=== PATIENT | female | born 1980 | race African-American/Black ===

== ENCOUNTER 2023-05-20 17:01 | Emergency (ER) | payer OTHER, SELFPAY ==
[2023-05-20 17:13] VITALS: BP 132/99; PULSE 68; RESP 17; TEMP 36.3; O2SAT 100
--- NOTE | 2023-05-20 19:54 | ED.GENADULT ---
HPI - General Adult General Chief complaint: Unspecified Stated complaint: nasal congestion/head fullness/sinus infection Time Seen by Provider: 05/20/23 19:27 History of Present Illness HPI narrative: Patient is a 43-year-old female presenting with sinusitis. Patient states that she has had months of nasal congestion and sinus fullness and starting to vape. States that she has stopped vaping but her symptoms have continued. States that she has been using nasal spray which is no longer helping. Reports nasal drainage mild cough but no fevers or chills, shortness of breath, chest pain. Denies further complaints. Related Data Allergies Allergy/AdvReac Type Severity Reaction Status Date / Time No Known Allergies Allergy Verified 05/20/23 19:18 Review of Systems Review of Systems: All systems reviewed & are unremarkable except as noted in HPI and below Exam Narrative: GENERAL: Well-appearing and in no acute distress. HEAD: Normocephalic, atraumatic. EYES: PERRLA and EOMI. ENT: +bilateral nasal congestion, mild frontal sinus tenderness NECK: Supple. CHEST: Clear to auscultation. No respiratory distress. HEART: Regular rate and rhythm ABDOMEN: Nondistended EXTREMITIES: Normal range of motion. SKIN: Warm, dry, no rash. NEURO: Alert and oriented x3. PSYCH: Normal mood and affect. Course Vital Signs Vital signs: Vital Signs Temperature 97.4 F L 05/20/23 17:13 Pulse Rate 68 05/20/23 17:13 Respiratory Rate 17 05/20/23 17:13 Blood Pressure 132/99 H 05/20/23 17:13 Pulse Oximetry 100 05/20/23 17:13 Oxygen Delivery Room Air 05/20/23 17:13 Temperature 97.4 F L 05/20/23 17:13 Pulse Rate 68 05/20/23 17:13 Respiratory Rate 17 05/20/23 17:13 Blood Pressure 132/99 H 05/20/23 17:13 Pulse Oximetry 100 05/20/23 17:13 Oxygen Delivery Room Air 05/20/23 17:13 Medical Decision Making [facility] Narrative Medical decision making narrative: Patient is a 43-year-old female presenting with sinusitis for several months. Vitals are stable. Exam remarkable for the above. Patient was able to show me the nasal spray that she has been using which contains oxymetazoline. Advised that she discontinue any nasal sprays that contain this and only use nasal sprays that have saline. She is agreeable with this plan. We will treat her with a course of antibiotics for possible chronic sinusitis. Advised ENT follow-up. Appropriate return precautions given. Patient voiced understanding and is agreeable with plan. Discharged in stable condition. Differential Diagnosis Differential Diagnosis: Sinusitis, URI, nasal congestion Medical Records Medical records reviewed: Yes I reviewed the external patient's medical records. Vital Signs Vital Signs: Vital Signs Temperature 97.4 F L 05/20/23 17:13 Pulse Rate 68 05/20/23 17:13 Respiratory Rate 17 05/20/23 17:13 Blood Pressure 132/99 H 05/20/23 17:13 Pulse Oximetry 100 05/20/23 17:13 Oxygen Delivery Room Air 05/20/23 17:13 Temperature 97.4 F L 05/20/23 17:13 Pulse Rate 68 05/20/23 17:13 Respiratory Rate 17 05/20/23 17:13 Blood Pressure 132/99 H 05/20/23 17:13 Pulse Oximetry 100 05/20/23 17:13 Oxygen Delivery Room Air 05/20/23 17:13 Critical Care Time Critical Care Time Critical Care Time: No Discharge Plan Discharge Clinical Impression: Sinusitis Patient Disposition: Home, Self-Care Condition: Stable Instructions: Sinusitis (ED) Additional Instructions: Please stop using all nasal sprays except for ones that only contain saline. We have started you on a course of antibiotics for your ongoing sinusitis. Please follow-up closely with ENT. We also recommend following up with your PCP within 1-3 days. If your symptoms worsen, you develop chest pain, shortness of breath, numbness or weakness, vomiting, fevers >100.4F, or other concerning symptoms arise, please return to the ER. Prescriptions: New
[2023-05-20] MEDS: AMOXICILLIN/CLAVULANATE K 875-125 MG TAB 1 TABLET PO (20:04)
== END 2023-05-20 20:14 | disposition home or self-care (01) ==
PROVIDERS: Emergency Provider Emergency Medicine
DX: J32.9 Chronic sinusitis, unspecified (principal)
CPT/HCPCS: 99283; A9270